=== PATIENT | female | born 1970 | race Caucasian/White ===

== ENCOUNTER 2025-03-10 13:06 | Outpatient (AMB) | payer OTHER, SELFPAY ==
--- NOTE | 2025-03-10 13:12 | MHC.PC.OV ---
Vital Signs 03/10/25 13:21 Height 5 ft 4 in Weight 136 lb 12.8 oz BMI 23.5 BP 110/64 Blood Pressure Location Lt brachial Position Sitting Respiration 14 Pulse 82 Pulse Source Pulse Oximeter Temp 98.0 F Temp Source Oral Pulse Oximetry (%) 96 Oxygen Delivery Method Room Air Intake Visit Reasons: establish care Intake Note: Patient is a new patient here to establish care. Patient reports she did not have a previous PCP; was seen at urgent care facilities, if she needed care. Medical records have not been requested and have not been received. Telephone Order Dispatcher Required: No Telephone Order Dispatcher Name: Pt refused Accompanied by: Self / Same As Patient Allergies No Known Allergies Allergy (Verified 03/10/25 13:51) Medication List - Last Reconciled 03/10/25 by SEJAL Mcmillan No Known Home Meds Tobacco use date assessed: 03/10/25 Dental Screening Dental Screen Date: 03/10/25 Did you have a dental visit in the last 12 months?: Yes Did you have a dental problem in the last 6 months where you did not have access to dental care?: No Was dental information given to patient?: Patient has dentist HPI establish care HPI Details Previous PCP: Reports that she has been going to an urgent care, once in a while when she gets sick Last visit: 2014 Last PE: same Specialist: OBGYN: obgyn referral Past medical history:surgery 2011 resection right ovary, reports that she was sent to oncology, who said this was not cancerous Medications: Family HX: Mother pancreas cancer at age 65, father stomach cancer at age 44 Problem: reports she has not have a colonoscopy as yet reports that she had mammogram 2012 after surgery- and it was good The patient reports urinating often, but she drinks a lot of water as well. She denies burning with urination, denies discharge or any other urinary symptoms. Patient reports that she just peed before this visit and is unable to give a sample for urinalysis Reports that she will go and get a urinalysis done tomorrow, but she is going to wait on getting her labs done closer to her follow up appointment The patient reports that sometimes, she has leg cramps at nighttime She denies shortness of breath, chest pain, heart palpitation or dizziness Denies any change in bowel habits or abdominal pain [facility] Surgical History History of right oophorectomy Family History Father Stomach cancer Mother Pancreas cancer Social History Household Members: Family Housing: House Alcohol intake: current Alcohol intake frequency: holidays/special occasions only Alcohol type: beer Patient Tobacco Use Status: Never used Tobacco e-Cigarette/Vaping Use: Never Used Second Hand Smoke Exposure: No Cognitive needs: No Hearing needs: No Vision needs: No Questionnaire PHQ-9 Over the last 2 weeks, how often have you been bothered by any of the following problems? 1. Little interest or pleasure in doing things: not at all 2. Feeling down, depressed, or hopeless: not at all 3. Trouble falling or staying asleep, or sleeping too much: not at all 4. Feeling tired or having little energy: not at all 5. Poor appetite or overeating: not at all 6. Feeling bad about yourself - or that you are a failure or have let yourself or your family down: not at all 7. Trouble concentrating on things, such as reading the newspaper or watching television: not at all 8. Moving or speaking so slowly that other people could have noticed. Or the opposite - being so fidgety or restless that you have been moving around a lot more than usual: not at all 9. Thoughts that you would be better off or of hurting yourself in some way: not at all Total score: 0 Depression Screening Interpretation: Negative Depression Screening Done: Yes 02193 - PHQ-9 Billing: Yes Source: Developed by Drs. Cain Fontanez, Glenys Alanis, Waqar Tellez and colleagues, with an educational terrell from [employer]. Thrive Questionnaire Date Thrive assessed: 03/10/25 I am a: Patient What is your living situation today?: I have a steady place to live Within the past 12 months, did the food you bought not last and you didn't have the money to get more?: Never true Within the past 12 months, did you worry whether your food would run out before you got money to buy more?: Never true Do you have trouble paying for medicines?: No Do you have trouble getting transportation to medical appointments?: No Do you have trouble paying your heating and electricity bill?: No Do you have trouble taking care of your child, family member or friend?: No Do you have trouble with day-to-day activities such as bathing, preparing meals, shopping, managing finances, etc.?: No Are you currently unemployed and looking for a job?: No Are you interested in more education?: Yes Please select the resources that you would like help with: None Currently or been in a relationship where the following occur: No concerns reported THRIVE Score: 0 AUDIT C Alcohol Use Questionnaire (AUDIT-C) 1. How often do you have a drink containing alcohol?: Monthly or less 2. How many drinks containing alcohol do you have on a typical day when you are drinking?: 1 or 2 3. How often do you have six or more drinks on one occasion?: Never Total Score: 1 Score Reviewed/Action Taken: No CHRIS-7 AMB Questionnaire CHRIS-7 Date CHRIS - 7 assessed: 03/10/25 Feeling nervous, anxious, or on edge: 0 = Not at all Not being able to stop or control worryin = Not at all Worrying too much about different things: 0 = Not at all Trouble relaxin = Not at all Being so restless that it is hard to sit still: 0 = Not at all Becoming easily annoyed or irritable: 0 = Not at all Feeling afraid as if something awful might happen: 0 = Not at all Total CHRIS-7 score (0-4 normal; 5-9 mild; 10-14 moderate; 15-21 severe): 0 Source: Developed by Drs. Cain Fontanez, Glenys Alanis, Waqar Tellez and colleagues, with an educational terrell from [employer]. CHRIS-7 Assessment Billing CHRIS-7 Assessment Tool: CHRIS-7 Assessment 64549 Review of Systems Const Denies headache(s) ENT Denies headache(s) and Denies sore throat Card Denies chest pain, Denies leg edema and Denies lightheadedness Resp Denies cough and Denies hemoptysis GI Denies abdominal pain, Denies melena, Denies constipation, Denies diarrhea and Denies vomiting Denies urinary frequency, Denies dysuria, Denies urinary urgency and Reports other (Urinary frequency) Musc Denies arthralgias, Denies joint swelling and Reports muscle cramps (In the nighttime) Neuro Denies headache(s) Physical exam (Primary Care) Vital Signs: Last Vital Signs Temp 98.0 F 03/10/25 13:21 Pulse 82 03/10/25 13:21 Resp 14 03/10/25 13:21 BP 110/64 03/10/25 13:21 Pulse Ox 96 03/10/25 13:21 Oxygen Delivery Method Room Air 03/10/25 13:21 BMI result Body Mass Index 23.5 Tobacco/Smoking Status: Tobacco use Status Tobacco use date assessed 03/10/25 03/10/25 13:13 Patient Tobacco Use Status Never used Tobacco 03/10/25 13:37 e-Cigarette/Vaping Use Never Used 03/10/25 13:37 PHQ-9: PHQ-9 Score PHQ-9: Total score 0 03/10/25 18:02 Depression Screening Interpretation: Negative Thrive Assessment: Date of Thrive Assessment Date Thrive assessed 03/10/25 03/10/25 13:13 Currently or been in a relationship where the following occur: No concerns reported Const General: healthy appearing, no acute distress, alert and awake Nutritional Appearance: well nourished Orientation/consciousness: oriented to person, oriented to place and oriented to time HENMT Ears: external ears normal General nose exam: Normal external nose present Eyes Conjunctivae: conjunctivae normal Sclerae: sclerae normal Pupils: Equal, round and reactive pupils present Neck Neck: Yes no lymphadenopathy and Yes no JVD Thyroid: Thyroid normal Carotids: no bruits Resp Effort & Inspection: normal respiratory effort and not tachypneic Auscultation: no crackles, no rales, no rhonchi and no wheezes Cardio Rate: regular rate Rhythm: regular rhythm Heart sounds: no murmurs and normal S1 and S2 GI Palpation (GI): Soft to palpation and nontender Auscultation: normal bowel sounds Skin General skin exam: no rashes or lesions noted and dry skin Neuro General: oriented to person, oriented to place and oriented to time Cranial nerves: Yes Equal, round and reactive pupils present Gait exam (Neuro): Normal gait present Motor exam (neuro): no tremor noted Psych Mental Status: mental status grossly normal Speech and movement: Normal speech and movement present Affect: normal affect Attitude: cooperative Thought process: Normal thought process present Coding Level of Care Code New Pt Level 3 (73203) Diagnoses Urinary frequency R35.0 Leg cramps R25.2 Encounter for colorectal cancer screening Z12.11; Z12.12 Additional Codes CHRIS-7 Assessment Billing - CHRIS-7 Assessment Tool: CHRIS-7 Assessment 09177 ([id number]) PHQ-9 - 33616 - PHQ-9 Billing: Yes ([id number]) Time Spent (min) 38 Assessment & Plan Assessment & Plan (1) Urinary frequency: Code(s): R35.0 - Frequency of micturition Category: Medical Plan: Patient reports urinary frequency. Reports that she also drinks a lot of fluids. Denies any other urinary symptoms. Urinalysis with reflex ordered (2) Leg cramps: Code(s): R25.2 - Cramp and spasm Category: Medical Plan: CBC with diff, CMP, magnesium, B12 and folate, TSH and vitamin-D levels ordered to further evaluate. Maintain proper hydration. (3) Encounter for colorectal cancer screening: Code(s): Z12.11 - Encounter for screening for malignant neoplasm of colon; Z12.12 - Encounter for screening for malignant neoplasm of rectum Category: Medical Plan: GI referral placed for colonoscopy screening. Patient has a strong family history of cancer and she is overdue. Orders: Orders Comprehensive [place]. Panel Fast Today R25.2 - Cramp and spasm, Z00.00 - Encounter for general adult medical examination without abnormal findings Vitamin B12 and Folate Today R25.2 - Cramp and spasm, Z00.00 - Encounter for general adult medical examination without abnormal findings TSH reflex Free T4 Today R25.2 - Cramp and spasm, Z00.00 - Encounter for general adult medical examination without abnormal findings Lipid Panel Today R25.2 - Cramp and spasm, Z00.00 - Encounter for general adult medical examination without abnormal findings Glucose Fasting Today R25.2 - Cramp and spasm, Z00.00 - Encounter for general adult medical examination without abnormal findings Complete Blood Count Auto Diff Today R25.2 - Cramp and spasm, Z00.00 - Encounter for general adult medical examination without abnormal findings Vitamin D 25-OH Total Today R25.2 - Cramp and spasm, Z00.00 - Encounter for general adult medical examination without abnormal findings Magnesium Today R25.2 - Cramp and spasm, Z00.00 - Encounter for general adult medical examination without abnormal findings UA CC w/rflx Micro + Cult Today R25.2 - Cramp and spasm, Z00.00 - Encounter for general adult medical examination without abnormal findings Referrals [employer] Referral Z01.419 - Encounter for gynecological examination (general) (routine) without abnormal findings, 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
[2025-03-10 13:21] VITALS: BP 110/64; PULSE 82; RESP 14; TEMP 36.7; O2SAT 96; BMI 23.5
== END 2025-03-10 14:12 | disposition home or self-care (01) ==
LOC: HO.HMCH 13:06
DX: R35.0 Frequency of micturition (principal); R25.2 Cramp and spasm; Z12.11 Encounter for screening for malignant neoplasm of colon; Z12.12 Encounter for screening for malignant neoplasm of rectum

== ENCOUNTER → 2025-03-10 13:06 | Outpatient (BNVA) | payer OTHER, SELFPAY | DX: R35.0 Frequency of micturition (principal); R25.2 Cramp and spasm | CPT/HCPCS: 96127; 99202 ==

== ENCOUNTER 2025-04-08 08:48 | Outpatient (REF) | payer OTHER, SELFPAY ==
[2025-04-08 09:01] LABS: MANUAL DIFF FLAG NO
[2025-04-08 09:46] LABS: Basophils Absolute Auto 0.1 X10*3/uL (0.0-0.2); Basophils Percent Auto 1.3 % (0-2); Eosinophils Absolute Auto 0.2 X10*3/uL (0.0-0.4); Eosinophils Percent Auto 4.7 % (0-4); Hematocrit 43.1 % (37.0-47.0); Hemoglobin 13.9 g/dl (12.0-16.0); Lymphocytes Absolute Auto 1.2 X10*3/uL (1.2-4.9); Lymphocytes Percent Auto 32.2 % (20-40); Mean Corpuscular HGB Conc 32.3 g/dl (31.0-35.0); Mean Corpuscular Hemoglobin 29.7 pg (27.0-33.0); Mean Corpuscular Volume 92.1 fL (80.0-98.0); Mean Platelet Volume 10.6 fL (9.4-12.3); Monocytes Absolute Auto 0.5 X10*3/uL (0.1-1.2); Monocytes Percent Auto 12.6 % (2-11); Neutrophils Absolute Auto 1.9 x10*3/uL (2.0-8.3); Neutrophils Percent Auto 49.2 % (45-73); Platelet Count 189 X10*3/uL (160-400); Red Blood Count 4.68 X10*6/uL (4.20-5.50); White Blood Count 3.8 X10*3/uL (4.8-10.8)
[2025-04-08 09:49] LABS: Appearance Urine Clear; Color Urine Yellow; Glucose Urine UA Negative (Negative); Leukocyte Esterase Urine Negative (Negative); Nitrite Urine Negative (Negative); Specific Gravity - Urine <= 1.005 (1.005-1.025); Urine Blood Negative (Negative); Urine Ketones Negative (Negative); Urine Protein Negative (Neg-Trace)
[2025-04-08 10:23] LABS: Alanine Aminotransferase 33 U/L (0-31); Albumin Level 4.5 g/dL (3.5-5.0); Alkaline Phosphatase 86 U/L (39-117); Anion Gap 9 (12-20); Aspartate Amino Transferase 31 U/L (5-31); Bilirubin Total 1.2 mg/dL (0.0-1.0); Blood Urea Nitrogen 7 mg/dL (9-16); Calcium 9.3 mg/dL (8.4-10.2); Carbon Dioxide 29 mmol/L (22-29); Chloride 106 mmol/L (96-108); Cholesterol 197 mg/dL (<200); Estimated Glomerular Filt Rate > 60; Glucose Fasting 88 mg/dL (60-99); HDL Cholesterol 51 mg/dL (>40); LDL Cholesterol Calculated 129 mg/dL (<100); Magnesium 2.4 mg/dL (1.6-2.6); Potassium 4.7 mmol/L (3.3-5.1); Sodium 139 mmol/L (135-145); Total Protein 7.6 g/dL (6.5-8.0); Triglycerides 86 mg/dL (<150)
[2025-04-08 10:36] LABS: Vitamin B12 413 pg/mL (200-900)
[2025-04-08 10:42] LABS: Vitamin D 25-OH Total 21.7 ng/mL (>30)
[2025-04-08 11:10] LABS: Folate 8.5 ng/mL (> or = 4.0)
== END 2025-04-08 08:49 | disposition home or self-care (01) ==
LOC: HO.LAB 08:48
DX: Z00.00 Encounter for general adult medical examination without abnormal findings (principal); R25.2 Cramp and spasm
CPT/HCPCS: 36415; 80053; 80061; 81003; 82306; 82607; 82746; 83735; 84443; 85025

== ENCOUNTER 2025-04-21 13:49 | Outpatient (AMB) | payer OTHER, SELFPAY ==
[2025-04-21 13:57] VITALS: BP 104/62; PULSE 65; RESP 18; TEMP 36.4; O2SAT 98; BMI 22.9
--- NOTE | 2025-04-21 13:57 | A.OFFPC_ITS ---
Vital Signs 04/21/25 13:57 Height 5 ft 4 in Weight 133 lb 6.4 oz BMI 22.9 BP 104/62 Blood Pressure Location Lt brachial Position Sitting Respiration 18 Pulse 65 Pulse Source Pulse Oximeter Temp 97.6 F Temp Source Oral Pulse Oximetry (%) 98 Oxygen Delivery Method Room Air Intake Visit Reasons: pe Financial Service Professional Required: No Accompanied by: Self / Same As Patient Allergies No Known Allergies Allergy (Verified 04/25/25 20:38) Medication List - Last Reconciled 04/25/25 by SEJAL Mcmillan No Known Home Meds Tobacco use date assessed: 04/21/25 Dental Screening Dental Screen Date: 04/21/25 Did you have a dental visit in the last 12 months?: Yes Did you have a dental problem in the last 6 months where you did not have access to dental care?: No Was dental information given to patient?: Patient has dentist HPI pe HPI Details Dentist:has not been to the dentist for couple years Eye: has not have a eye exam in a while Snellen: Right: Left: Corrected vision: no STI screening: Colonoscopy: appt in August, Pap Smer: May, appt PHQ-9: Flu: never COVID:never Tdap:declines Diet:vegetarian Exercise:not much The patient is a 54-year-old female presenting for a wellness visit and review of laboratory results. The recent lab results reveal mild leukopenia and elevated cholesterol levels. The patient reports slightly elevated liver enzymes, with infrequent alcohol consumption and no regular acetaminophen usage. She maintains a predominantly vegetarian diet. Vitamin D levels are low, attributed to limited sunlight exposure, and are managed with supplementation. No significant acute symptoms are reported. 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 1. Little interest or pleasure in doing things: not at all 2. Feeling down, depressed, or hopeless: not at all 3. Trouble falling or staying asleep, or sleeping too much: not at all 4. Feeling tired or having little energy: not at all 5. Poor appetite or overeating: not at all 6. Feeling bad about yourself - or that you are a failure or have let yourself or your family down: not at all 7. Trouble concentrating on things, such as reading the newspaper or watching television: not at all 8. Moving or speaking so slowly that other people could have noticed. Or the op posite - being so fidgety or restless that you have been moving around a lot more than usual: not at all 9. Thoughts that you would be better off or of hurting yourself in some way: not at all Total score: 0 Depression Screening Interpretation: Negative Depression Screening Done: Yes Source: Developed by Drs. Cain Fontanez, Glenys Alanis, Waqar Tellez and colleagues, with an educational terrell from [employer]. Thrive Questionnaire Date Thrive assessed: 04/21/25 I am a: Patient What is your living situation today?: I have a steady place to live Within the past 12 months, did the food you bought not last and you didn't have the money to get more?: Never true Within the past 12 months, did you worry whether your food would run out before you got money to buy more?: Never true Do you have trouble paying for medicines?: No Do you have trouble getting transportation to medical appointments?: No Do you have trouble paying your heating and electricity bill?: No Do you have trouble taking care of your child, family member or friend?: No Do you have trouble with day-to-day activities such as bathing, preparing meals, shopping, managing finances, etc.?: No Are you currently unemployed and looking for a job?: No Are you interested in more education?: Yes Please select the resources that you would like help with: None Currently or been in a relationship where the following occur: No concerns reported THRIVE Score: 0 AUDIT C Alcohol Use Questionnaire (AUDIT-C) 1. How often do you have a drink containing alcohol?: Never Total Score: 0 Score Reviewed/Action Taken: No CHRIS-7 AMB Questionnaire CHRIS-7 Date CHRIS - 7 assessed: 04/21/25 Feeling nervous, anxious, or on edge: 0 = Not at all Not being able to stop or control worryin = Not at all Worrying too much about different things: 0 = Not at all Trouble relaxin = Not at all Being so restless that it is hard to sit still: 0 = Not at all Becoming easily annoyed or irritable: 0 = Not at all Feeling afraid as if something awful might happen: 0 = Not at all Total CHRIS-7 score (0-4 normal; 5-9 mild; 10-14 moderate; 15-21 severe): 0 Source: Developed by Drs. Cain Fontanez, Glenys Alanis, Waqar Tellez and colleagues, with an educational terrell from [employer]. Review of Systems Const Denies headache(s) Eyes Denies loss of vision ENT Denies vertigo, Denies dizziness, Denies headache(s) and Denies sore throat Card Denies chest pain, Denies leg edema and Denies lightheadedness Resp Denies cough, Denies hemoptysis and Denies wheezing GI Denies abdominal pain, Denies melena, Denies constipation, Denies diarrhea and Denies vomiting Denies urinary frequency, Denies dysuria and Denies urinary urgency Musc Denies arthralgias, Denies joint swelling, Denies numbness and Denies tingling Neuro Denies Abnormal speech present, Denies behavioral changes, Denies vertigo, Denies dizziness, Denies headache(s), Denies loss of vision, Denies memory loss, Denies numbness and Denies tingling Psych Denies anxiety, Denies behavioral changes, Denies depression, Denies memory loss and Denies panic attacks Chris/Lymph Denies easy bleeding and Denies easy bruising Aller/Immun Denies wheezing Physical exam (Primary Care) Vital Signs: Last Vital Signs Temp 97.6 F 04/21/25 13:57 Pulse 65 04/21/25 13:57 Resp 18 04/21/25 13:57 BP 104/62 04/21/25 13:57 Pulse Ox 98 04/21/25 13:57 Oxygen Delivery Method Room Air 04/21/25 13:57 BMI result Body Mass Index 22.9 Tobacco/Smoking Status: Tobacco use Status Tobacco use date assessed 04/21/25 04/21/25 14:07 Patient Tobacco Use Status Never used Tobacco 04/21/25 14:07 e-Cigarette/Vaping Use Never Used 04/21/25 14:07 PHQ-9: PHQ-9 Score PHQ-9: Total score 0 04/21/25 14:40 Depression Screening Interpretation: Negative Thrive Assessment: Date of Thrive Assessment Date Thrive assessed 04/21/25 04/21/25 14:07 Currently or been in a relationship where the following occur: No concerns reported Const General: healthy appearing, no acute distress, alert and awake Nutritional Appearance: well nourished Orientation/consciousness: oriented to person, oriented to place and oriented to time HENMT Ears: TM's normal bilaterally General nose exam: Normal nasal mucous membranes and turbinates present Eyes Conjunctivae: conjunctivae normal Sclerae: sclerae normal Pupils: Equal, round and reactive pupils present Neck Neck: Yes no lymphadenopathy and Yes no JVD Thyroid: Thyroid normal Carotids: no bruits Resp Effort & Inspection: normal respiratory effort and not tachypneic Auscultation: no crackles, no rales, no rhonchi and no wheezes Cardio Rate: regular rate Rhythm: regular rhythm Heart sounds: no murmurs and normal S1 and S2 GI Palpation (GI): Soft to palpation, nontender, no hepatomegaly and no splenomegaly Auscultation: normal bowel sounds Skin General skin exam: no rashes or lesions noted and dry skin Neuro General: oriented to person, oriented to place and oriented to time Cranial nerves: Yes Equal, round and reactive pupils present Speech: No Abnormal speech present Gait exam (Neuro): Normal gait present Motor exam (neuro): no tremor noted Deep tendon reflexes (DTR's): Right triceps reflex intensity grade: 2+, Left triceps reflex intensity grade: 2+, Rt Biceps (C5, C6): 2+, Left biceps reflex intensity grade: 2+, Right brachioradialis reflex intensity grade: 2+, Left brachioradialis reflex intensity grade: 2+, Right patellar reflex intensity grade: 2+ and Left patellar reflex intensity grade: 2+ Extrem Right upper extremity: full ROM Left upper extremity: full ROM Right lower extremity: full ROM; no edema Left lower extremity: full ROM; no edema Psych Mental Status: mental status grossly normal Speech and movement: Normal speech and movement present Affect: normal affect Attitude: cooperative Thought process: Normal thought process present Results Reviewed Results Reviewed: Laboratory Tests 04/08/25 04/08/25 08:56 08:59 WBC 3.8 L RBC 4.68 Hgb 13.9 Hct 43.1 MCV 92.1 MCH 29.7 MCHC 32.3 RDW 13.0 Plt Count 189 MPV 10.6 Sodium 139 Potassium 4.7 Chloride 106 Carbon Dioxide 29 Anion Gap 9 L BUN 7 L Creatinine 0.74 Estimated GFR > 60 Fasting Glucose 88 Calcium 9.3 Magnesium 2.4 Total Bilirubin 1.2 H AST 31 ALT 33 H Alkaline Phosphatase 86 Total Protein 7.6 Albumin 4.5 Triglycerides 86 Cholesterol 197 LDL Cholesterol, Calc 129 H HDL Cholesterol 51 Vitamin B12 413 25-OH Vitamin D Total 21.7 L Folate 8.5 TSH 1.10 Urine Color Yellow Urine Appearance Clear Urine pH 7.0 Ur Specific [place] <= 1.005 Urine Protein Negative Urine Glucose (UA) Negative Urine Ketones Negative Urine Blood Negative Urine Nitrite Negative Ur Leukocyte Esterase Negative Coding Level of Care Code Est Pt Prev Care 40-64y(54577) Diagnoses Annual physical exam Z00.00 Pure hypercholesterolemia E78.00 Vitamin D deficiency E55.9 Elevated ALT measurement R74.01 Urinary frequency R35.0 Leg cramps R25.2 Encounter for screening mammogram for malignant neoplasm of breast Z12.31 Breast cancer screening modality: mammogram Time Spent (min) 38 Assessment & Plan Assessment & Plan (1) Annual physical exam: Code(s): Z00.00 - Encounter for general adult medical examination without abnormal findings Category: Medical Plan: Preventative guidelines and recent labs reviewed with the patient. Patient is due for multiple age-related screening modalities. She already has appointments for GI for colonoscopy and OBGYN for routine exam. We will order a mammogram, that she reports having this done in 2013, last. The patient does not believe in vaccines, so most of the recommended vaccinations were not taken. (2) Pure hypercholesterolemia: Code(s): E78.00 - Pure hypercholesterolemia, unspecified Category: Medical Plan: Reinforced low-cholesterol diet and activity as tolerated. The patient reports that she is a vegetarian mostly and only eats fish and very infrequently tries chicken. We will repeat lipid panel in 4 months (3) Vitamin D deficiency: Code(s): E55.9 - Vitamin D deficiency, unspecified Category: Medical Plan: Start vitamin-D3 supplement OTC daily (4) Elevated ALT measurement: Code(s): R74.01 - Elevation of levels of liver transaminase levels Category: Medical Plan: Mildly elevated ALT. Reports using Tylenol and alcohol infrequently. We will repeat CMP in 4 months (5) Urinary frequency: Code(s): R35.0 - Frequency of micturition Category: Medical Plan: Patient reports urinary frequency. Reports that she also drinks a lot of fluids. Denies any other urinary symptoms. Urinalysis with reflex unremarkable. (6) Leg cramps: Code(s): R25.2 - Cramp and spasm Category: Medical Plan: CBC with diff, CMP, magnesium, B12 and folate, TSH and vitamin-D levels all unremarkable except for vitamin-D, recommend vitamin-D supplement OTC. Maintain proper hydration. (7) Breast cancer screening: Code(s): Z12.39 - Encounter for other screening for malignant neoplasm of breast Category: Medical Qualifiers: Breast cancer screening modality: mammogram Qualified Code(s): Z12.31 - Encounter for screening mammogram for malignant neoplasm of breast Plan: Mammogram ordered Orders: Orders Complete Blood Count Auto Diff 4 Months E55.9 - Vitamin D deficiency, unspecified, E78.00 - Pure hypercholesterolemia, unspecified, R74.01 - Elevation of levels of liver transaminase levels Vitamin D 25-OH Total 4 Months E55.9 - Vitamin D deficiency, unspecified, E78.00 - Pure hypercholesterolemia, unspecified, R74.01 - Elevation of levels of liver transaminase levels Glucose Fasting 4 Months E55.9 - Vitamin D deficiency, unspecified, E78.00 - Pure hypercholesterolemia, unspecified, R74.01 - Elevation of levels of liver transaminase levels UA CC w/rflx Micro + Cult 4 Months E55.9 - Vitamin D deficiency, unspecified, E78.00 - Pure hypercholesterolemia, unspecified, R74.01 - Elevation of levels of liver transaminase levels Lipid Panel 4 Months E55.9 - Vitamin D deficiency, unspecified, E78.00 - Pure hypercholesterolemia, unspecified, R74.01 - Elevation of levels of liver transaminase levels MM tomosynthesis screening BI Today Z12.31 - Encounter for screening mammogram for malignant neoplasm of breast Comprehensive [place]. Panel Fast 4 Months E55.9 - Vitamin D deficiency, unspecified, E78.00 - Pure hypercholesterolemia, unspecified, R74.01 - Elevation of levels of liver transaminase levels TSH reflex Free T4 4 Months E55.9 - Vitamin D deficiency, unspecified, E78.00 - Pure hypercholesterolemia, unspecified, R74.01 - Elevation of levels of liver transaminase levels
== END 2025-04-21 14:56 | disposition home or self-care (01) ==
LOC: HO.HMCH 13:50
DX: Z00.00 Encounter for general adult medical examination without abnormal findings (principal); E78.00 Pure hypercholesterolemia, unspecified; E55.9 Vitamin D deficiency, unspecified; R74.01 Elevation of levels of liver transaminase levels; R35.0 Frequency of micturition; R25.2 Cramp and spasm; Z12.31 Encounter for screening mammogram for malignant neoplasm of breast

== ENCOUNTER → 2025-04-21 13:49 | Outpatient (BNVA) | payer OTHER, SELFPAY | DX: Z00.00 Encounter for general adult medical examination without abnormal findings (principal); E78.00 Pure hypercholesterolemia, unspecified; E55.9 Vitamin D deficiency, unspecified; R74.01 Elevation of levels of liver transaminase levels; R35.0 Frequency of micturition; R25.2 Cramp and spasm; Z13.30 Encounter for screening examination for mental health and behavioral disorders, unspecified | CPT/HCPCS: 96127; 99396 ==

== ENCOUNTER 2025-06-20 16:14 | Outpatient (REF) | payer OTHER, SELFPAY | END 2025-06-20 16:15 | disposition home or self-care (01) | LOC: HO.MAMMO 16:14 | DX: Z12.31 Encounter for screening mammogram for malignant neoplasm of breast (principal) | CPT/HCPCS: 77063; 77067 ==

== ENCOUNTER → 2025-06-20 16:15 | Outpatient (BNV) | payer OTHER, SELFPAY | PROVIDERS: Visit Provider Internal Medicine | DX: Z12.31 Encounter for screening mammogram for malignant neoplasm of breast (principal) | CPT/HCPCS: 77063; 77067 ==

== ENCOUNTER 2025-09-13 12:38 | Outpatient (AMB) | payer OTHER, SELFPAY ==
[2025-09-13 12:42] VITALS: BP 91/63; PULSE 75; BMI 22.7
--- NOTE | 2025-09-13 12:42 | A.OFFVIS_ITS ---
Vital Signs 3 09/13/25 12:42 Height 5 ft 4 in Weight 132 lb BMI 22.7 BP 91/63 Blood Pressure Location Lt brachial Position Sitting Pulse 75 Intake Visit Reasons: Thida screening Intake Note: New patient in office today for colonoscopy screening. CC: Patient denies having any GI symptoms or concerns today. She states that her sister gets colonoscopy done every 3 years do to colon polyps. Benefits Analyst Required: No Accompanied by: Self / Same As Patient Allergies No Known Allergies Allergy (Verified 09/13/25 12:49) HPI HPI Thida screening: Details: 54-year-old female here for preprocedural meeting to discuss a screening colonoscopy. She is referred by Mark Gagnon. PMX High cholesterol * SURGICAL HISTORY Right oophorectomy Coccyx surgery * ALLERGIES: NKDA * Dishable LABS: Laboratory Tests 04/08/25 08:59 WBC 3.8 L Hgb 13.9 Hct 43.1 Plt Count 189 Estimated GFR > 60 Total Bilirubin 1.2 H AST 31 ALT 33 H Alkaline Phosphatase 86 TSH 1.10 TODAY'S VISIT Prior:This is her first colonoscopy Bowel or upper GI problems: she has occasional CIC, no upper GI problems. SHE HAS A OCCASIONAL PAIN IN her stomach that she describes a spasmodic the goes away when she drinks water. This leads us to a discussion of her family history, and since her father had stomach cancer we will get an H pylori breath test to rule this out in her case. Cardiac or resp problems:No anesthesia problems:No ID problems:No FHX;Her father had stomach cancer and her sister had colon polyps. 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 Cognitive needs: No Hearing needs: No Vision needs: No Review of Systems Const Denies fatigue, Denies fever(s), Denies night sweats, Denies poor appetite and Denies weight loss ENT Reports Normal hearing present, Denies dysphagia, Denies odynophagia, Denies throat swelling and Denies tongue swelling Card Reports no additional complaints Resp Reports no additional complaints GI Details: Reports abdominal pain, Denies melena, Denies bloating, Denies hematochezia, Denies constipation, Denies GI cramping, Denies dysphagia, Denies excessive flatus, Denies early satiety, Denies heartburn, Denies diarrhea, Denies nausea, Denies odynophagia, Denies vomiting and Denies hematemesis Skin/Breast Denies pruritus, Denies lesions, Denies rash and Denies jaundice Neuro Reports Normal hearing present and Denies Abnormal speech present Endo Denies fatigue Aller/Immun Denies throat swelling and Denies tongue swelling Physical Exam Vital Signs: Last Vital Signs Pulse 75 09/13/25 12:42 BP 91/63 09/13/25 12:42 BMI result Body Mass Index 22.7 Const General: cooperative, no acute distress, well developed and well groomed Nutritional Appearance: well nourished and thin Orientation/consciousness: oriented to person, oriented to place and oriented to time Limitations: No language barrier HEENT Head: Yes normocephalic and Yes atraumatic Eyes General: appearance normal, both eyes and all related structures Pupils: Equal, round and reactive pupils present Neck Neck: Yes normal visual inspection and Yes no lymphadenopathy Thyroid: Thyroid normal Resp Effort & Inspection: normal respiratory effort and able to speak in complete sentences Auscultation: clear to auscultation bilaterally Cardio Rate: regular rate Rhythm: regular rhythm Heart sounds: Normal, physiologic split S2 sound present Peripheral pulses: radial pulses present and posterior tibial pulses present GI Inspection: No distended and No Abdominal panniculus present Palpation (GI): Soft to palpation, nontender, no guarding, not rigid and No hepatosplenomegaly present Percussion: Yes normal to percussion Auscultation: normal bowel sounds Rectal Exam - Female: deferred Abdomen image: 2 1. surgical scars 2. Back/Spine/Pelvis Thoracic/Lumbar Spine: other (thoracic levoscoliosis) Skin General skin exam: no rashes or lesions noted, turgor normal, skin not dry, no jaundice, No spider nevi and no striae Rashes: no rashes Nails: normal Neuro General: oriented to person, oriented to place and oriented to time Cranial nerves: Yes Equal, round and reactive pupils present and Yes Normal hearing present Speech: No Abnormal speech present Extrem General: Yes normal to inspection, No clubbing, No cyanosis and No edema Psych Appearance: grossly normal and well kempt Mental Status: mental status grossly normal Speech and movement: Normal speech and movement present Affect: normal affect Attitude: cooperative Thought process: Normal thought process present and not confabulating Thought content: Normal thought content present Insight: Good insight present (Psych) Judgement: Good judgement present (Psych) Assessment & Plan Assessment & Plan (1) Pre-op examination: Code(s): Z01.818 - Encounter for other preprocedural examination Category: Medical (2) Family history of stomach cancer: Code(s): Z80.0 - Family history of malignant neoplasm of digestive organs Category: Medical Plan Prior:This is her first colonoscopy Bowel or upper GI problems: she has occasional CIC, no upper GI problems. SHE HAS A OCCASIONAL PAIN IN her stomach that she describes a spasmodic the goes away when she drinks water. This leads us to a discussion of her family history, and since her father had stomach cancer we will get an H pylori breath test to rule this out in her case. Cardiac or resp problems:No anesthesia problems:No ID problems:No FHX;Her father had stomach cancer and her sister had colon polyps. Orders: Orders 2 H Pylori Breath Test Today Z80.0 - Family history of malignant neoplasm of digestive organs Referrals 2 GI Procedure Notification Z01.818 - Encounter for other preprocedural examination Medications: New 2 peg 3350-electrolytes 236-22.74-6.74 -5.86 gram (Golytely) until fecal effluent is clear; do not exceed a total volume of 2,000 mL 240 mL PO Q10M 4,000 mL 0RF 1 day Z12.11 - Encounter for screening for malignant neoplasm of colon bisacodyl (Dulcolax (bisacodyl)) 10 mg (2 x 5 mg) PO BEDTIME 4 tabs 0RF 2 days Coding Level of Care Code New Pt Level 3 (40376) Diagnoses Pre-op examination Z01.818 Family history of stomach cancer Z80.0
== END 2025-09-13 14:31 | disposition home or self-care (01) ==
LOC: HO.HGI 12:39
PROVIDERS: Visit Provider Nurse Practitioner
DX: Z01.818 Encounter for other preprocedural examination (principal); Z12.11 Encounter for screening for malignant neoplasm of colon; Z80.0 Family history of malignant neoplasm of digestive organs
CPT/HCPCS: 99203

== ENCOUNTER 2025-09-13 12:38 | Outpatient (REF) | payer OTHER, SELFPAY | END 2025-09-13 12:39 | disposition home or self-care (01) | LOC: HO.LNP 12:38 | PROVIDERS: Visit Provider Nurse Practitioner | DX: Z01.818 Encounter for other preprocedural examination (principal); Z80.0 Family history of malignant neoplasm of digestive organs | CPT/HCPCS: 83013; 99202 ==

== ENCOUNTER 2025-10-25 13:32 | Outpatient (REF) | payer OTHER, SELFPAY | END 2025-10-25 13:33 | disposition home or self-care (01) | LOC: HO.LNP 13:32 | PROVIDERS: Visit Provider Advanced Practice Midwife | DX: Z01.419 Encounter for gynecological examination (general) (routine) without abnormal findings (principal); N95.1 Menopausal and female climacteric states; Z11.51 Encounter for screening for human papillomavirus (HPV) | CPT/HCPCS: 87626; 88175; 99386 ==

== ENCOUNTER 2025-10-25 13:32 | Outpatient (AMB) | payer OTHER, SELFPAY ==
[2025-10-25 13:34] VITALS: BP 106/70; BMI 23.0
--- NOTE | 2025-10-25 13:34 | MHC.OFFVIS ---
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 Occasional hot flashes. Menopause onset age 44. Currently not sexually active. Denies any vaginal dryness or irritation. STI testing offered; she declines. Attempting to eat a healthy diet with calcium and stays active with exercise-swims. Last pap smear; >10 yrs. ago, negative. Last mammogram; 2024. She reports colonoscopy is UTD. 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 Cognitive needs: No Hearing needs: No Vision needs: No Female Reproductive History Menstrual Age of menopause: 44 Total pregnancies: 2 Number of Living Children: 0 Ab induced: 2 Date of Mammogram: 06/20/25 (Birad 1) Review of Systems Const All systems reviewed & are unremarkable except as noted in HPI and below Reports as per HPI Eyes Reports no additional complaints ENT Reports no additional complaints Card Reports no additional complaints Resp Reports no additional complaints GI Reports as per HPI and Reports no additional complaints Reports as per HPI Musc Reports no additional complaints Skin/Breast Reports as per HPI Neuro Reports no additional complaints Psych Reports no additional complaints Endo Reports no additional complaints Chris/Lymph Reports no additional complaints Aller/Immun Reports no additional complaints Physical Exam Vital Signs: Last Vital Signs BP 106/70 10/25/25 13:34 BMI result Body Mass Index 23.0 Const General: cooperative, healthy appearing, no acute distress, well developed and alert Orientation/consciousness: patient oriented x3 HEENT Head: Yes normal to inspection Eyes General: appearance normal, both eyes and all related structures Neck Neck: Yes normal visual inspection Thyroid: Thyroid normal Chest Chest palpation & inspection: normal inspection of the chest and other (no puckering, dimpling, peau de orange, retraction, discharge, masses) Breast/axilla inspection: normal inspection of the breasts Breast/axilla palpation: normal palpation of the breasts Resp Effort & Inspection: normal respiratory effort GI Inspection: Yes normal to inspection Palpation (GI): Soft to palpation Rectal Exam - Female: deferred General: Yes bladder normal to palpation External Female Exam: normal external appearance (Small left labial firm nontender sebaceous gland cyst, not infected) and normal appearance of the urethra Speculum Exam - Vagina: normal appearance of the vagina, normal palpation and normal vaginal discharge Speculum Exam - Cervix: normal appearance of the cervix and normal palpation Bimanual exam- vagina & uterus: normal bimanual exam, normal palpation, uterine size normal, bladder normal to palpation, normal palpation and non-tender Bimanual Exam- Adnexa, other: no masses Skin General skin exam: no rashes or lesions noted Rashes: no rashes Neuro General: patient oriented x3 Cognition (Neuro): normal cognition Extrem General: Yes normal to inspection Psych Attitude: cooperative Thought process: Normal thought process present Assessment & Plan Assessment & Plan (1) Encounter for well woman exam with routine gynecological exam: Code(s): Z01.419 - Encounter for gynecological examination (general) (routine) without abnormal findings Category: Medical Plan Discussed: Current recommendations for pap smears per ASCCP guidelines. Breast awareness, periodic self breast exams and yearly mammogram. Maintain a healthy lifestyle, well balanced diet including Calcium 1,200 mg and Vitamin D 600 IU daily, and routine exercise. Use of condoms for STI prevention if indicated. Contact the office with any postmenopausal bleeding. Discuss findings of small sebaceous gland cyst-common and benign findings, patient is adamant to have it removed-appointment for consult for removal to be made with the empty. Patient verbalizes understanding and agrees to the plan of care. She was given opportunity to ask questions and all questions were answered to the best of my ability. RTO in 1 year for annual structural designer exam. This note is constructed using voice recognition software. While every effort has been made to ensure accuracy, greeter guest services errors may have been included. Orders: Orders Pap Smear Today Z01.419 - Encounter for gynecological examination (general) (routine) without abnormal findings XR DEXA axial skeleton Today N95.1 - Menopausal and female climacteric states HPV High risk Today Z01.419 - Encounter for gynecological examination (general) (routine) without abnormal findings Coding Level of Care Code New Pt Prev Care 40-64y(57778) Diagnoses Encounter for well woman exam with routine gynecological exam Z01.419
== END 2025-10-25 15:03 | disposition home or self-care (01) ==
LOC: HO.HWS 13:33
PROVIDERS: Visit Provider Advanced Practice Midwife
DX: Z01.419 Encounter for gynecological examination (general) (routine) without abnormal findings (principal)
CPT/HCPCS: 99386; 99459

== ENCOUNTER 2025-10-28 07:46 | Outpatient (REF) | payer OTHER, SELFPAY ==
[2025-10-28 08:37] LABS: Appearance Urine Clear; Glucose Urine UA Negative (Negative); PH 7.5 (5.0-9.0); Specific Gravity - Urine <= 1.005 (1.005-1.025); UMIC TRIGGER UACC YES
[2025-10-28 09:06] LABS: Alanine Aminotransferase 16 U/L (0-31); Albumin Level 4.8 g/dL (3.5-5.0); Alkaline Phosphatase 85 U/L (39-117); Anion Gap 11 (12-20); Aspartate Amino Transferase 19 U/L (5-31); Blood Urea Nitrogen 10 mg/dL (9-16); Calcium 9.4 mg/dL (8.4-10.2); Carbon Dioxide 29 mmol/L (22-29); Chloride 107 mmol/L (96-108); Cholesterol 209 mg/dL (<200); Estimated Glomerular Filt Rate > 60; HDL Cholesterol 55 mg/dL (>40); Potassium 4.4 mmol/L (3.3-5.1); Sodium 143 mmol/L (135-145); Total Protein 7.7 g/dL (6.5-8.0); Triglycerides 63 mg/dL (<150)
[2025-10-28 09:16] LABS: Hematocrit 41.5 % (37.0-47.0); Hemoglobin 13.6 g/dl (12.0-16.0); Imm Gran Abs Auto 0.00 X10*3/uL (0.00-0.03); Imm Gran Pct Auto 0.0 % (0.0-0.4); Lymphocytes Absolute Auto 1.4 X10*3/uL (1.2-4.9); MANUAL DIFF FLAG SCAN; Mean Corpuscular HGB Conc 32.8 g/dl (31.0-35.0); Mean Corpuscular Hemoglobin 30.2 pg (27.0-33.0); Mean Corpuscular Volume 92.2 fL (80.0-98.0); NRBC Abs Auto 0.000 X10*3/uL (0.0-0.012); NRBC Pct Auto 0.0 /100WBC (0.0-0.2); PLT CLUMP 1; Red Blood Count 4.50 X10*6/uL (4.20-5.50); SCAN SMEAR FLAG 1
[2025-10-28 09:18] LABS: White Blood Count 3.6 X10*3/uL (4.8-10.8)
== END 2025-10-28 07:47 | disposition home or self-care (01) ==
LOC: HO.LAB 07:46
DX: Z00.00 Encounter for general adult medical examination without abnormal findings (principal); R74.01 Elevation of levels of liver transaminase levels; E55.9 Vitamin D deficiency, unspecified; E78.00 Pure hypercholesterolemia, unspecified
CPT/HCPCS: 36415; 80053; 80061; 81001; 82306; 84443; 85025

== ENCOUNTER 2025-11-03 10:58 | Outpatient (AMB) | payer OTHER, SELFPAY ==
[2025-11-03 11:00] VITALS: BP 102/60; PULSE 75; RESP 18; O2SAT 97; BMI 23.4
--- NOTE | 2025-11-03 11:00 | A.OFFPC_ITS ---
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 Flexible Leads Required: No Accompanied by: Self / Same As Patient Allergies No Known Allergies Allergy (Verified 11/03/25 11:31) Medication List - Last Reconciled 11/03/25 by SEJAL Mcmillan No Known Home Meds Tobacco use date assessed: 11/03/25 Dental Screening Dental Screen Date: 11/03/25 Did you have a dental visit in the last 12 months?: Yes Did you have a dental problem in the last 6 months where you did not have access to dental care?: No Was dental information given to patient?: Patient has dentist HPI HPI Comments History of Present Illness Details The patient is a 54 year old female presenting for elevated ALT, HLD, vitamin-D deficiency follow-up visit. Recent labs reviewed with the patient. Her recent lab work showed an increase in her LDL cholesterol from 129 to 142. Her HDL cholesterol remains at a good level, above 40. The patient reports being a vegetarian who also eats chicken and fish; she notes a recent increase in consumption of fried shrimp and acknowledges sometimes frying chicken, which she suspects contributed to the elevated cholesterol. In contrast, her vitamin D level has improved to a normal range of 32.7, and her liver enzymes are also better. The patient reports a new complaint of dry skin, which persists even after applying cream. She states the dryness is worse during the winter with indoor heating and was better during the summer. She also reports experiencing chest pain, which she associates with stress. The pain has been better over the last few weeks since her stress level has decreased after a recent trip. She has not had an EKG recently but may have had one many years ago. She denies any shortness of breath or difficulty breathing. Health Maintenance - Dietary modification for hypercholeste rolemia was discussed, with recommendations to bake food instead of frying and to limit intake of high- cholesterol foods like shellfish. - An EKG was recommended and ordered to evaluate stress-related chest pain. - Follow-up lipid panel will be checked after dietary changes are implemented. Social History - Diet: Patient reports being a vegetari an who also eats chicken and fish. - She recently consumed fried shrimp whi le on vacation and sometimes fries chicken at home. - Stress: Reports significant stress rel ated to driving during a recent trip to [place], which she links to her chest pain. Results - LDL Cholesterol: Increased to 142 from a previous value of 129. - HDL Cholesterol: Normal, greater than 40. - Vitamin D: 32.7 ng/mL, which is within the normal range. - Liver Enzymes: Improved. 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 Depression Screening Interpretation: Negative Depression Screening Done: Yes Source: Developed by Drs. Cain Fontanez, Glenys Alanis, Waqar Tellez and colleagues, with an educational terrell from [employer]. Thrive Questionnaire Date Thrive assessed: 11/03/25 I am a: Patient What is your living situation today?: I have a steady place to live Within the past 12 months, did the food you bought not last and you didn't have the money to get more?: Never true Within the past 12 months, did you worry whether your food would run out before you got money to buy more?: Never true Do you have trouble paying for medicines?: No Do you have trouble getting transportation to medical appointments?: No Do you have trouble paying your heating and electricity bill?: No Do you have trouble taking care of your child, family member or friend?: No Do you have trouble with day-to-day activities such as bathing, preparing meals, shopping, managing finances, etc.?: No Are you currently unemployed and looking for a job?: No Are you interested in more education?: Yes Please select the resources that you would like help with: None Currently or been in a relationship where the following occur: No concerns reported THRIVE Score: 0 CHRIS-7 AMB Questionnaire CHRIS-7 Date CHRIS - 7 assessed: 04/21/25 Source: Developed by Drs. Cain Fontanez, Glenys Alanis, Waqar Tellez and colleagues, with an educational terrell from [employer]. Review of Systems Const Denies headache(s) Eyes Denies loss of vision ENT Denies vertigo, Denies dizziness, Denies headache(s) and Denies sore throat Card Reports chest pain (Occasionally was stress), Denies leg edema and Denies lightheadedness Resp Denies cough, Denies hemoptysis and Denies wheezing GI Denies abdominal pain, Denies melena, Denies constipation, Denies diarrhea and Denies vomiting Denies urinary frequency, Denies dysuria and Denies urinary urgency Musc Denies arthralgias, Denies joint swelling, Denies numbness and Denies tingling Neuro Denies Abnormal speech present, Denies behavioral changes, Denies vertigo, Denies dizziness, Denies headache(s), Denies loss of vision, Denies memory loss, Denies numbness and Denies tingling Psych Denies anxiety, Denies behavioral changes, Denies depression, Denies memory loss and Denies panic attacks Chris/Lymph Denies easy bleeding and Denies easy bruising Aller/Immun Denies wheezing Physical exam (Primary Care) Vital Signs: Last Vital Signs Resp 18 11/03/25 11:00 Oxygen Delivery Method Room Air 11/03/25 11:00 Tobacco/Smoking Status: Tobacco use Status Tobacco use date assessed 11/03/25 11/03/25 11:02 Patient Tobacco Use Status Never used Tobacco 11/03/25 11:00 e-Cigarette/Vaping Use Never Used 11/03/25 11:00 Depression Screening Interpretation: Negative Thrive Assessment: Date of Thrive Assessment Date Thrive assessed 11/03/25 11/03/25 11:02 Currently or been in a relationship where the following occur: No concerns reported Narrative Physical Exam - Lungs: Clear to auscultation bilaterally. Const General: healthy appearing, no acute distress, alert and awake Nutritional Appearance: well nourished Orientation/consciousness: oriented to person, oriented to place and oriented to time HENMT Ears: TM's normal bilaterally General nose exam: Normal nasal mucous membranes and turbinates present Eyes Conjunctivae: conjunctivae normal Sclerae: sclerae normal Pupils: Equal, round and reactive pupils present Neck Neck: Yes no lymphadenopathy and Yes no JVD Thyroid: Thyroid normal Carotids: no bruits Resp Effort & Inspection: normal respiratory effort and not tachypneic Auscultation: no crackles, no rales, no rhonchi and no wheezes Cardio Rate: regular rate Rhythm: regular rhythm Heart sounds: no murmurs and normal S1 and S2 GI Palpation (GI): Soft to palpation, nontender, no hepatomegaly and no splenomegaly Auscultation: normal bowel sounds General: Yes no CVA tenderness Back/Spine/Pelvis Back: no CVA tenderness Skin General skin exam: no rashes or lesions noted and dry skin Neuro General: oriented to person, oriented to place and oriented to time Cranial nerves: Yes Equal, round and reactive pupils present Speech: No Abnormal speech present Gait exam (Neuro): Normal gait present Motor exam (neuro): no tremor noted Extrem Right upper extremity: full ROM Left upper extremity: full ROM Right lower extremity: full ROM; no edema Left lower extremity: full ROM; no edema Psych Mental Status: mental status grossly normal Speech and movement: Normal speech and movement present Affect: normal affect Attitude: cooperative Thought process: Normal thought process present Results Reviewed Results Reviewed: Laboratory Tests 10/28/25 07:50 WBC 3.6 L RBC 4.50 Hgb 13.6 Hct 41.5 MCV 92.2 MCH 30.2 MCHC 32.8 RDW 12.3 Plt Count TNP Sodium 143 Potassium 4.4 Chloride 107 Carbon Dioxide 29 Anion Gap 11 L BUN 10 Creatinine 0.69 Estimated GFR > 60 Fasting Glucose 104 H Calcium 9.4 Total Bilirubin 0.6 AST 19 ALT 16 Alkaline Phosphatase 85 Total Protein 7.7 Albumin 4.8 Triglycerides 63 Cholesterol 209 H LDL Cholesterol, Calc 142 H HDL Cholesterol 55 25-OH Vitamin D Total 32.7 TSH 1.36 Urine Color Yellow Urine Appearance Clear Urine pH 7.5 Ur Specific [place] <= 1.005 Urine Protein Negative Urine Glucose (UA) Negative Urine Ketones Negative Urine Blood Negative Urine Nitrite Negative Ur Leukocyte Esterase Trace H Urine RBC 0-2 Urine WBC 0-5 Ur Squamous Epith Cells 0-2 Urine Bacteria None Seen Hyaline Casts 0-2 Coding Level of Care Code Est Pt Level 4 (83202) Diagnoses Pure hypercholesterolemia E78.00 Vitamin D deficiency E55.9 Elevated ALT measurement R74.01 Urinary frequency R35.0 Leg cramps R25.2 Precordial pain R07.2 Chest pain type: precordial pain Dry skin L85.3 Time Spent (min) 39 Assessment & Plan Assessment & Plan (1) Pure hypercholesterolemia: Code(s): E78.00 - Pure hypercholesterolemia, unspecified Category: Medical Plan: The patient's LDL cholesterol has increased to 142, which is attributed to recent dietary choices, including consumption of fried shrimp and chicken. Dietary modifications were discussed, emphasizing baking instead of frying and limiting high-cholesterol foods like shellfish. We will recheck her lipid panel at a future visit to assess the impact of these changes. (2) Vitamin D deficiency: Code(s): E55.9 - Vitamin D deficiency, unspecified Category: Medical Plan: Start vitamin-D3 supplement OTC daily (3) Elevated ALT measurement: Code(s): R74.01 - Elevation of levels of liver transaminase levels Category: Medical Plan: Mildly elevated ALT on previous lab, since has normalized. Reports using Tylenol and alcohol infrequently. We will continue to monitor (4) Urinary frequency: Code(s): R35.0 - Frequency of micturition Category: Medical Plan: Patient reports urinary frequency. Reports that she also drinks a lot of fluids. Denies any other urinary symptoms. Urinalysis with reflex unremarkable. (5) Leg cramps: Code(s): R25.2 - Cramp and spasm Category: Medical Plan: CBC with diff, CMP, magnesium, B12 and folate, TSH and vitamin-D levels all unremarkable except for vitamin-D, recommend vitamin-D supplement OTC. Maintain proper hydration. (6) Chest pain: Code(s): R07.9 - Chest pain, unspecified Category: Medical Qualifiers: Chest pain type: precordial pain Qualified Code(s): R07.2 - Precordial pain Plan: The patient reports chest pain that is associated with stress. Although this is very likely stress-related, an EKG has been ordered for today to rule out any underlying cardiac rhythm abnormalities as a precaution. The patient agreed to have the test performed during the visit. EKG shows sinus rhythm with short GA intervals. We will have the patient do a cardiac stress test to further evaluate this. (7) Dry skin: Code(s): L85.3 - Xerosis cutis Category: Medical Plan: The patient complains of persistent dry skin, which worsens in the winter and is not relieved by her current cream. It was recommended that she try moisturizers specifically formulated for dry skin. A referral to a pen ruler operator was offered if the condition does not improve with [id number] options. Plan Plan Patient was informed and verbally consented to the use of an ambient scribe for clinic note documentation during this visit. 1. Hypercholesterolemia The patient's LDL cholesterol has increased to 142, which is attributed to recent dietary choices, including consumption of fried shrimp and chicken. Dietary modifications were discussed, emphasizing baking instead of frying and limiting high-cholesterol foods like shellfish. We will recheck her lipid panel at a future visit to assess the impact of these changes. 2. Xerosis Cutis The patient complains of persistent dry skin, which worsens in the winter and is not relieved by her current cream. It was recommended that she try moisturizers specifically formulated for dry skin. A referral to a pen ruler operator was offered if the condition does not improve with [id number] options. 3. Chest Pain The patient reports chest pain that is associated with stress. Although this is very likely stress-related, an EKG has been ordered for today to rule out any underlying cardiac rhythm abnormalities as a precaution. The patient agreed to have the test performed during the visit. EKG shows sinus rhythm with short GA intervals. We will have the patient do a cardiac stress test to further evaluate this. Discussion Notes I reviewed the patient's recent lab results with her, noting the increase in her LDL cholesterol to 142. We discussed that this was likely due to her recent diet, including fried shrimp and chicken. I advised her to modify her diet by baking foods instead of frying and limiting high-cholesterol items. I also informed her that her vitamin D level and liver enzymes have improved. We addressed her complaint of dry skin, and I recommended trying specialized moisturizers and offered a dermatology referral if there is no improvement. In response to her report of stress-related chest pain, I explained the rationale for performing an EKG to rule out a cardiac cause, despite the likely benign nature of her symptoms. She understood and consented to proceed with the EKG today. Patient Instructions - To help lower your cholesterol, try to bake your food instead of frying it. - Please limit eating foods high in cholesterol, such as shrimp and other shellfish. - For your dry skin, try using a lotion or cream that is specially made for dry skin. - If your skin does not get better, we can give you a referral to see a skin spe cialist. - We will be doing an EKG test today to check your heart's rhythm because of the chest pain you've been having with stress. - We will check your cholesterol levels again in the future. Orders: Orders UA CC w/rflx Micro + Cult 3 Months E55.9 - Vitamin D deficiency, unspecified, E78.00 - Pure hypercholesterolemia, unspecified, R07.9 - Chest pain, unspecified, R74.01 - Elevation of levels of liver transaminase levels Complete Blood Count Auto Diff 3 Months E55.9 - Vitamin D deficiency, unspecified, E78.00 - Pure hypercholesterolemia, unspecified, R07.9 - Chest pain, unspecified, R74.01 - Elevation of levels of liver transaminase levels Lipid Panel 3 Months E55.9 - Vitamin D deficiency, unspecified, E78.00 - Pure hypercholesterolemia, unspecified, R07.9 - Chest pain, unspecified, R74.01 - Elevation of levels of liver transaminase levels TSH reflex Free T4 3 Months E55.9 - Vitamin D deficiency, unspecified, E78.00 - Pure hypercholesterolemia, unspecified, R07.9 - Chest pain, unspecified, R74.01 - Elevation of levels of liver transaminase levels Vitamin D 25-OH Total 3 Months E55.9 - Vitamin D deficiency, unspecified, E78.00 - Pure hypercholesterolemia, unspecified, R07.9 - Chest pain, unspecified, R74.01 - Elevation of levels of liver transaminase levels Comprehensive [place]. Panel Fast 3 Months E55.9 - Vitamin D deficiency, unspec ified, E78.00 - Pure hypercholesterolemia, unspecified, R07.9 - Chest pain, unspecified, R74.01 - Elevation of levels of liver transaminase levels CK, Total+Isoenzymes, Serum 3 Months E55.9 - Vitamin D deficiency, unspecified, E78.00 - Pure hypercholesterolemia, unspecified, R07.9 - Chest pain, unspecified, R74.01 - Elevation of levels of liver transaminase levels CA stress test Today R07.9 - Chest pain, unspecified
== END 2025-11-03 11:51 | disposition home or self-care (01) ==
LOC: HO.HMCH 10:58
DX: E78.00 Pure hypercholesterolemia, unspecified (principal); E55.9 Vitamin D deficiency, unspecified; R74.01 Elevation of levels of liver transaminase levels; R35.0 Frequency of micturition; R25.2 Cramp and spasm; R07.2 Precordial pain; L85.3 Xerosis cutis

== ENCOUNTER → 2025-11-03 10:58 | Outpatient (BNVA) | payer OTHER, SELFPAY | DX: E78.00 Pure hypercholesterolemia, unspecified (principal); E55.9 Vitamin D deficiency, unspecified; R74.01 Elevation of levels of liver transaminase levels; R35.0 Frequency of micturition; R25.2 Cramp and spasm; R07.2 Precordial pain; L85.3 Xerosis cutis | CPT/HCPCS: 99212 ==

== ENCOUNTER 2025-11-07 14:25 | Outpatient (REF) | payer OTHER, SELFPAY ==
--- NOTE | ~2025-11-07 | MM_ITS ---
EXAMINATION: DXA BONE DENSITY AXIAL HISTORY: N95.1 - Menopausal and female climacteric states TECHNIQUE: TriNovus Dual energy absorptiometry (DEXA) of the lumbar spine, total left hip, and femoral neck was performed. COMPARISON: There are no prior studies for comparison. FINDINGS: The bone mineral density of the lumbar spine is 1.145 g/cm2, corresponding to a T-score of -0.3, and a Z-score of 0.6. This is indicative of normal bone mineral density. The bone mineral density of the left total hip is 1.048 g/cm2, corresponding to a T-score of 0.3, and a Z-score of 1.1. This is indicative of normal bone mineral density. The bone mineral density of the left femoral neck is 1.046 g/cm2, corresponding to a T-score of 0.1, and a Z-score of 1.2. This is indicative of normal bone mineral density. MM/XR DEXA axial skeleton IMPRESSION: Based on bone mineral density, and according to World Health Organization (WHO) criteria, the diagnosis is consistent with normal bone mineral density. Statistically, 68% of repeat scans fall within 1 SD (+/- 0.010 g/cm2 for AP spine L1-L4) and 1 SD (+/- 0.012 g/cm2 for femur total) FRAX is a trademark of the [employer]'s [employer] [facility] [employer], a World Health Organization (WHO) Collaborating Center. Electronically signed by: Cain Vizcaino MD 11/07/2025 03:04 PM LEE
== END 2025-11-07 14:26 | disposition home or self-care (01) ==
LOC: HO.MAMMO 14:25
PROVIDERS: Visit Provider Advanced Practice Midwife
DX: N95.1 Menopausal and female climacteric states (principal)
CPT/HCPCS: 77080

== ENCOUNTER → 2025-11-07 14:30 | Outpatient (BNV) | payer OTHER, SELFPAY | PROVIDERS: Visit Provider Radiology Diagnostic Radiology | DX: E28.39 Other primary ovarian failure (principal) | CPT/HCPCS: 77080 ==

== ENCOUNTER → 2025-11-09 08:01 | Outpatient (REF) | payer OTHER, SELFPAY ==
--- NOTE | 2025-11-09 08:04 | CA_ITS ---
Acquisition Time: 2025-11-09 08:03:55 Total Exercise Time: 00:07:00 Test Indications: CP Medications: SEE H&P Protocol: [place] Max HR: 155 BPM 93% of Pred: 166 BPM Max BP: 118/64 mmHG Max Work Load: 8.5 METS Exercise stress test with exercise 7 mins of [place] Protocol, achieving 93% MPHR, with reports of mild fatigue, no chest pain, without any arrythmias, with normotensive response to exercise. Without any EKG changes meeting criteria for ischemia. In recovery, pt feeling back to baseline. Test reviewed with Dr. Kline. Referred By: Mark Gagnon Electronically Signed By: Erick Braden
== END ==
LOC: HO.CARD 08:01
DX: R07.9 Chest pain, unspecified (principal)
CPT/HCPCS: 93017

== ENCOUNTER → 2025-11-09 08:04 | Outpatient (BNV) | payer OTHER, SELFPAY | DX: R07.9 Chest pain, unspecified (principal) | CPT/HCPCS: 93016; 93018 ==

== ENCOUNTER 2025-11-18 13:09 | Outpatient (REF) | payer OTHER, SELFPAY | END 2025-11-18 13:10 | disposition home or self-care (01) | LOC: HO.LNP 13:09 | PROVIDERS: Visit Provider Obstetrics & Gynecology | DX: R87.610 Atypical squamous cells of undetermined significance on cytologic smear of cervix (ASC-US) (principal); R87.810 Cervical high risk human papillomavirus (HPV) DNA test positive; N90.89 Other specified noninflammatory disorders of vulva and perineum | CPT/HCPCS: 57454; 88305; 88341; 88342; 99212 ==

== ENCOUNTER 2025-11-18 13:09 | Outpatient (AMB) | payer OTHER, SELFPAY ==
--- NOTE | 2025-11-18 13:21 | MHC.OFFVIS ---
Vital Signs 11/18/25 13:25 Height 5 ft 4 in Weight 133 lb BMI 22.8 BP 100/62 Intake Visit Reasons: Consult for gland removal/dexa results ? colpo Patient Scheduling Coordinator Required: No Information Interpreted: non-clinical & clinical Touch Up Painter Hand: Touch Up Painter Hand Present (Kelly HCANDLER) Accompanied by: Self / Same As Patient Allergies No Known Allergies Allergy (Verified 11/18/25 13:28) Post menopausal: Yes HPI Comments Details: Presenting for abnormal Pap smear referred from Florence Puentes CNM for ascus HPV positive, HPV 16/18 negative in addition the patient is complaining of 2 lesions on the labia majora [facility] Medical History Menopausal state Surgical History History of right oophorectomy Family History Father Stomach cancer Mother Pancreas cancer Social History Household Members: Family Housing: House Alcohol intake: current Alcohol intake frequency: holidays/special occasions only Alcohol type: beer Patient Tobacco Use Status: Never used Tobacco e-Cigarette/Vaping Use: Never Used Second Hand Smoke Exposure: No service: No Current occupational status: employed 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[employer] Cognitive needs: No Hearing needs: No Vision needs: No Review of Systems Const All systems reviewed & are unremarkable except as noted in HPI and below Physical Exam General: Yes no CVA tenderness External Female Exam: No normal external appearance (2 labia majora lesions) and normal appearance of the urethra Speculum Exam - Vagina: normal appearance of the vagina, normal palpation, no lesions and no masses Speculum Exam - Cervix: normal appearance of the cervix, normal palpation, no lesions, no masses and nontender Bimanual exam- vagina & uterus: normal bimanual exam, normal palpation, uterine size normal, normal palpation, uterine shape normal, No Cervical tenderness present and non-tender Bimanual Exam- Adnexa, other: normal adnexae Back/Spine/Pelvis Back: no CVA tenderness Office Procedures Colposcopy Colposcopy: Pre-Procedure Counseling: Before beginning the procedure, I conducted comprehensive counseling with the patient. We thoroughly discussed the procedure itself, including its details, alternatives, and all associated risks. This included but not limited to the following complications such as bleeding, infection, and injury to the vagina, bladder, and vessels, as well as the potential need for transfusion with all its associated risks. Subsequently, the patient sign the consent. Pap smear result: Ascus/HPV positive, HPV 16/18 negative Procedure: During the procedure, the following steps were performed: A speculum was inserted, and acetic acid was applied. Colposcopy was conducted, allowing visualization of the transformation zone. Acetowhite lesions were identified at the 7+ 12+ 1+4 o'clock position. Cervical biopsies were obtained from the 7+ 12+ 1 o'clock position, followed by an endocervical curettage (ECC). Vaginoscopy of the upper vagina revealed no evidence of aceto-white lesions. Hemostasis was achieved using Monsel solution, and the patient tolerated the procedure well. Post-Procedure Instructions: The patient was advised to promptly contact the office or the after hours answering service or go to the emergency room if experiencing a temperature exceeding 100.4?F, abdominal pain, nausea/vomiting, or bleeding. Additionally, the patient was instructed to abstain from vaginal intercourse and bathtub use. The patient confirmed understanding of these instructions. Discharge Instructions: The patient was instructed to schedule a follow-up appointment in 2 weeks for further evaluation and management. Please note that this note was generated using a voice recognition program, and errors may have occurred during kitchen and counter worker. 70685-Malfbgvsy of cervix including upper vagina with biopsy and ECC Procedure code (CPT) selection complete Assessment & Plan Assessment & Plan (1) ASCUS with positive high risk HPV cervical: Code(s): R87.610 - Atypical squamous cells of undetermined significance on cytologic smear of cervix (ASC-US); R87.810 - Cervical high risk human papillomavirus (HPV) DNA test positive Category: Medical Plan: Discussed with the patient the result of her abnormal pap, its significance, risk of progression, persistence, and regression. the false positive/negative rate of a Pap smear as a screening test in detecting cervical cancer and the indication for a diagnostic test -colposcopy, biopsy, endocervical curettage. The patient verbalized understanding and agreed with the plan, all questions answered. Colposcopy, biopsy /ECC done, see procedure note (2) Vulvar lesion: Comment: 2 right labia majora lesions Code(s): N90.89 - Other specified noninflammatory disorders of vulva and perineum Category: Medical Plan: Discussed with the patient the finding on pelvic exam to right labia majora lesions, recommended excision. Instructions given the patient to schedule an appointment within a week for excision of the 2 right labia majora lesions. All questions answered, the patient verbalized understanding. Orders: Orders AMB Colposcopy Today R87.610 - Atypical squamous cells of undetermined significance on cytologic smear of cervix (ASC-US), R87.810 - Cervical high risk human papillomavirus (HPV) DNA test positive Coding Level of Care Code Est Pt Level 3 (34156) Procedure Only Diagnoses ASCUS with positive high risk HPV cervical R87.610; R87.810 Vulvar lesion N90.89 CPT Codes Colposcopy - CPT: 74905-Yymxxreek of cervix including upper vagina with biopsy and ECC ([id number])
[2025-11-18 13:25] VITALS: BP 100/62; BMI 22.8
== END 2025-11-18 14:18 | disposition home or self-care (01) ==
LOC: HO.HWS 13:10
PROVIDERS: Visit Provider Obstetrics & Gynecology
DX: R87.610 Atypical squamous cells of undetermined significance on cytologic smear of cervix (ASC-US) (principal); R87.810 Cervical high risk human papillomavirus (HPV) DNA test positive; N90.89 Other specified noninflammatory disorders of vulva and perineum
CPT/HCPCS: 57454; 99213